=== PATIENT | female | born 1955 | race Caucasian/White ===

== ENCOUNTER 2017-04-29 17:17 | Emergency (ER) | payer MEDICAID, OTHER ==
[~2017-04-29] VITALS: Ht 172.7 cm; Wt 81.2 kg
[~2017-04-29 17:17] MED LIST: PERC10; XANAX
[2017-04-29 17:22] VITALS: BP_SYST 134
[2017-04-29 19:05] VITALS: BP_SYST 134
== END 2017-04-29 19:05 | disposition home or self-care (01) ==
LOC: SED 17:17
DX: K04.7 Periapical abscess without sinus (principal); Z96.642 Presence of left artificial hip joint
CPT/HCPCS: 99283